=== PATIENT | male | born 1975 | race Two or more races ===

== ENCOUNTER 2018-09-16 08:08 | Emergency (ER) | payer OTHER ==
[2018-09-16 08:21] VITALS: BP 124/92
--- NOTE | 2018-09-16 08:39 | EDPHY ---
H & P Time Seen by Provider: 09/16/18 08:28 HPI/ROS: CHIEF COMPLAINT: Thumb laceration HISTORY OF PRESENT ILLNESS: The patient is a 43-year-old man who cut his thumb with a knife about an hour ago. He amputated part of the fat pad and the corner of the fingernail. It is only hanging on by thin piece of skin. Bleeding controlled until flap is opened thin and agreed to briskly. No other injuries. Severity: Moderate Modifying factors: None REVIEW OF SYSTEMS: Constitutional: denies: chills, fever, recent illness, recent injury EENTM: denies: blurred vision, double vision, nose congestion Respiratory: denies: cough, shortness of breath Cardiac: denies: chest pain, irregular heart rate, lightheadedness, palpitations Gastrointestinal/Abdominal: denies: abdominal pain, diarrhea, nausea, vomiting, blood streaked stools Genitourinary: denies: dysuria, frequency, hematuria, pain Musculoskeletal: denies: joint pain, muscle pain Skin: See HPI Neurological: denies: headache, numbness, paresthesia, tingling, dizziness, weakness Hematologic/Lymphatic: denies: blood clots, easy bleeding, easy bruising Immunologic/allergic: denies: HIV/AIDS, transplant 10 systems reviewed and negative except as noted EXAM: GENERAL: Well-appearing, well-nourished and in no acute distress. HEAD: Atraumatic, normocephalic. EYES: Pupils equal round and reactive to light, extraocular movements intact, sclera anicteric, conjunctiva are normal. ENT: TMs normal, nares patent, oropharynx clear without exudates. Moist mucous membranes. NECK: Normal range of motion, supple without lymphadenopathy or JVD. LUNGS: Breath sounds clear to auscultation bilaterally and equal. No wheezes rales or rhonchi. HEART: Regular rate and rhythm without murmurs, rubs or gallops. ABDOMEN: Soft, nontender, normoactive bowel sounds. No guarding, no rebound. No masses appreciated. BACK: No CVA tenderness, no spinal tenderness, step-offs or deformities EXTREMITIES: Normal range of motion, no pitting or edema. No clubbing or cyanosis. NEUROLOGICAL: Cranial nerves II through XII grossly intact. Normal speech, normal gait. 5/5 strength, normal movement in all extremities, normal sensation , normal reflexes PSYCH: Normal mood, normal affect. SKIN: Laceration see diagram Source: Patient - Personal History Current Tetanus Diphtheria and Acellular Pertussis (TDAP): Yes Tetanus Vaccine Date: 2016 - Medical/Surgical History Hx Asthma: No Hx Chronic Respiratory Disease: No Hx Diabetes: No Hx Cardiac Disease: No Hx Renal Disease: No Hx Cirrhosis: No Hx Alcoholism: No Hx HIV/AIDS: No Hx Splenectomy or Spleen Trauma: No - Social History Smoking Status: Former smoker Constitutional: Initial Vital Signs Temperature (C) 36.6 C 09/16/18 08:17 Heart Rate 79 09/16/18 08:17 Respiratory Rate 14 09/16/18 08:17 Blood Pressure 124/92 H 09/16/18 08:17 O2 Sat (%) 93 09/16/18 08:17 O2 Delivery Mode Room Air Allergies/Adverse Reactions: No Known Allergies Allergy (Unverified 09/16/18 08:17) Home Medications: Medication Instructions Recorded Ibuprofen [Ibu] 600 mg PO TID PRN #30 tablet 09/16/18 ED Images - Extremities Hands Back Left/Right: 1 - Partial amputation. Hanging on by a thin sliver of skin. Does involve the very corner of the nail and nail bed. Medical Decision Making Procedures: Procedure: Laceration repair. Verbal consent was obtained from the patient. The left thumb partial amputation laceration was anesthetized with 1% lidocaine locally infiltrated. The wound was irrigated copiously according to protocol, draped and explored to its base. It was approximately 1 cm deep. There were no deep structures involved. No tendon, nerve, or vascular injury was identified when explored. No foreign body was identified. The wound was repaired with 5.0 Prolene, 5 sutures, interrupted. The wound repair was complex with flap realignment. The procedure was performed by myself. A dressing was then placed with sterile gauze and bacitracin. ED Course/Re-evaluation: The patient has amputated the tip of his finger. No bony involvement. I will suture the tip down to act as a physiologic Band-Aid and for hemostasis. He understands that it will not survive. He understands that at some point will slough and then he will slowly. 9:05 a.m. Patient tolerated the repair. We discussed suture removal and care. We discussed fact that his finger tip will most likely not survive. He is comfortable with this. He is up-to-date on his tetanus. Differential Diagnosis: Partial list of the Differential diagnosis considered include but were not limited to; laceration, amputation and although unlikely based on the history and physical exam, I also considered bony involvement, foreign body. I discussed these differential diagnoses and the plan with the patient as well as the usual and expected course. The patient understands that the diagnosis is provisional and that in medicine we are not always correct and that further workup is often warranted. Usual and customary warnings were given. All of the patient's questions were answered. The patient was instructed to return to the emergency department should the symptoms at all worsen or return, otherwise to followup with the physician as we discussed. Departure - Departure Disposition: Home, Routine, Self-Care Clinical Impression: Laceration Condition: Fair Instructions: Care For Your Stitches (ED), Laceration (DC) Additional Instructions: Return in 10 days for suture removal Referrals: Hannah Reid MD [Medical Doctor] - As per Instructions Stand Alone Forms: Work Comp Follow Up Prescriptions: Ibuprofen [Ibu] 600 mg PO TID PRN #30 tablet PRN Reason: Pain
== END 2018-09-16 09:32 | disposition home or self-care (01) ==
LOC: CED 08:08
PROC: 0HQGXZZ Repair Left Hand Skin, External Approach (ICD-10-PCS; principal; 2018-09-16)
DX: S61.112A Laceration without foreign body of left thumb with damage to nail, initial encounter (principal); W26.0XXA Contact with knife, initial encounter; Y99.0 Civilian activity done for income or pay; Z87.891 Personal history of nicotine dependence
CPT/HCPCS: 99283-ER